=== PATIENT | female | born 1975 | race Caucasian/White ===

== ENCOUNTER 2017-09-20 15:59 | Emergency (ER) | payer OTHER ==
[~2017-09-20] VITALS: Ht 162.6 cm; Wt 45.0 kg
[2017-09-20 16:05] VITALS: BP 101/73
== END 2017-09-20 16:32 | disposition left against medical advice (07) ==
LOC: ER 16:10
DX: T65.91XA Toxic effect of unspecified substance, accidental (unintentional), initial encounter (principal); X58.XXXA Exposure to other specified factors, initial encounter; Z53.21 Procedure and treatment not carried out due to patient leaving prior to being seen by health care provider

== ENCOUNTER 2020-09-29 12:25 | Emergency (ER) | payer OTHER ==
[~2020-09-29] VITALS: Ht 160 cm; Wt 60.0 kg
[2020-09-29 12:51] VITALS: BP 114/85
[2020-09-29] MEDS ORDERED: SILV20CR13 TP (14:45)
[2020-09-29] MEDS ORDERED: DOXY100C2 MT (14:45)
[2020-09-29] MEDS ORDERED: TETANUS, DIPHTHERIA, PERTUSSIS VAC/PF 0.5ML (>7YR OLD) IM ONE (14:45)
== END 2020-09-29 15:00 | disposition home or self-care (01) ==
LOC: ER 12:25
DX: T23.122A Burn of first degree of single left finger (nail) except thumb, initial encounter (principal); G62.9 Polyneuropathy, unspecified; L02.416 Cutaneous abscess of left lower limb; L02.415 Cutaneous abscess of right lower limb; F15.10 Other stimulant abuse, uncomplicated; Z88.0 Allergy status to penicillin; Z76.0 Encounter for issue of repeat prescription; X08.8XXA Exposure to other specified smoke, fire and flames, initial encounter; Y93.89 Activity, other specified; Y92.018 Other place in single-family (private) house as the place of occurrence of the external cause
CPT/HCPCS: 90471; 90715; 99283

== ENCOUNTER 2021-03-03 04:02 | Emergency (ER) | payer OTHER ==
[~2021-03-03] VITALS: Ht 167.6 cm; Wt 64.0 kg
[~2021-03-03 04:02] MED LIST: DOXY100C5 MT; SILV20CR13 TP
[2021-03-03] MEDS ORDERED: TETANUS, DIPHTHERIA, PERTUSSIS VAC/PF 0.5ML (>10YR OLD) IM ONE (04:30)
[2021-03-03] MEDS ORDERED: ONDANSETRON HCL 4MG/2ML INJ IV ONE (04:30)
[2021-03-03] MEDS ORDERED: SODIUM CHLORIDE 0.9% 1,000 ML IV ONE (04:30)
[2021-03-03 09:11] LABS: HEMATOCRIT. 21.7 % (36.0-48.0); MEAN CORPUSCULAR HEMOGLOBIN 25.2 pg (28.0-32.0); MEAN CORPUSCULAR VOLUME 81.6 fL (81.0-99.0); MEAN PLATELET VOLUME 6.9 fl (7.4-10.4); PLATELET 223 x1000/uL (130-400); RED BLOOD CELL COUNT 2.66 mill/uL (4.2-5.4); RED CELL DISTRIBUTION WIDTH 17.9 % (11.6-14.6)
[2021-03-03 09:14] LABS: CHLORIDE 83 mEq/L (98-107)
[2021-03-03 09:15] LABS: HEMOGLOBIN. 6.7 g/dL (12.0-16.0)
[2021-03-03 09:20] LABS: ETHANOL BLOOD < 10 mg/dL
[2021-03-03] MEDS ORDERED: LORAZEPAM 2MG/ML CPJ IV ONE (09:30)
[2021-03-03 09:31] LABS: HCG SCREEN NEGATIVE
[2021-03-03 09:46] LABS: PHENOBARBITAL < 2.1 ug/mL (15.0-40.0); VALPROIC ACID < 3.0 ug/mL (50-100)
[2021-03-03 09:50] LABS: CARBAMAZEPINE 31.3 ug/mL (4-12)
[2021-03-03 10:00] VITALS: BP 143/101
[2021-03-03 10:00] LABS: TOTAL IRON BINDING CAPACITY 644 ug/dL (250-450)
[2021-03-03] MEDS ORDERED: LEVETIRACETAM 1000MG PREMIX 100 ML IV ONE (10:15)
[2021-03-03 10:41] LABS: PLATELET ESTIMATE NORMAL
== END 2021-03-03 12:07 | disposition short-term general hospital (02) ==
LOC: ER 04:02
DX: G93.40 Encephalopathy, unspecified (principal); R41.82 Altered mental status, unspecified; F15.10 Other stimulant abuse, uncomplicated; Z88.0 Allergy status to penicillin
CPT/HCPCS: 36415; 70450; 71045; 80053; 80156; 80165; 80184; 80185; 80307; 80320; 80329; 82140; 82962; 83540; 83550; 84443; 84484; 84703; 85025; 85044; 86850; 86900; 86901; 93005; 96361; 96374; 99285; J2060; J7030; G0480